=== PATIENT | female | born 1975 | race Caucasian/White ===

== ENCOUNTER 2016-12-02 21:24 | Emergency (ER) | payer OTHER ==
--- NOTE | ~2016-12-02 | CR63 ---
[facility]. [facility] A Service of [facility] & [facility] RADIOLOGY TEXT RESULTS PATIENT: DAVID MADISON LOCATION: SED : 79 UNIT #: [id number] AGE: [address]: Aurelia Good SEX: F ORDER DR: [id number] [address] [id number] MR#: [id number] Acc #: [id number] NAME: DAVID MADISON : 1975 SEX: F STUDY DATE/TIME: 12/02/2016 23:02 UNIT: SED ROOM: STUDY DESCRIPTION: CR Chest 2 View Attending Physician: Aurelia Good Pa-C Ordering Physician: Aurelia Good Pa-C Primary Care Physician: Elias Jean M.D. MEDICAL IMAGING REPORT This report is preliminary unless electronic signature is present. EXAM PA and lateral chest. INDICATIONS Upper back pain for 2 days. FINDINGS PA and lateral examination of the chest upright shows a good expansion of the parenchyma with a normal distribution of the pulmonary vascularity. There is no indication of congestion, effusion, infiltrate, tumor, or nodular density. The pleural reflections and diaphragmatic contours are normal. The cardiac silhouette and mediastinal anatomy is within normal limits. IMPRESSION Normal PA and lateral chest. Dictated by... Larry Poe M.D. THIS IS AN ELECTRONICALLY VERIFIED REPORT Larry Poe M.D. at 12/03/2016 5:54 AM INDERJIT/[email or web address] TD: 12/02/2016 23:56 JOB #: [id number] MEDICAL IMAGING REPORT Page 1 of 1
[~2016-12-02 21:24] MED LIST: AMOXICILLIN PO
[2016-12-02] MEDS ORDERED: LOSARTAN-HCTZ1 EACH PO (22:01)
[2016-12-02] MEDS ORDERED: MOTRIN600 MG PO (22:02)
[2016-12-02] MEDS ORDERED: NEURONTIN800 MG PO (22:02)
[2016-12-03 00:10] LABS: URINE APPEARANCE HAZY; URINE BILIRUBIN NEG (NEG); URINE BLOOD 2+ (NEG); URINE COLOR YELLOW; URINE GLUCOSE NEG (NORM); URINE KETONE TRACE (NEG); URINE LEUKOCYTE ESTERASE TRACE (NEG); URINE NITRATE POS (NEG); URINE PROTEIN NEG (NEG); URINE SOURCE CLEAN CATCH; URINE UROBILINOGEN 0.2 MG/DL (NORM)
[2016-12-03 00:13] LABS: MICRO INDICATED? YES
[2016-12-03 00:15] LABS: CULTURE INDICATED? YES; URINE BACTERIA 2+ (NEG); URINE MUCUS PRESENT; URINE SQUAMOUS EPITHELIAL CELL OCCAS /[HPF]; URINE TRANSITIONAL EPI CELLS FEW /[HPF]
== END 2016-12-03 00:47 | disposition home or self-care (01) ==
LOC: SED 21:24
PROVIDERS: Physician Assistant Medical
DX: N39.0 Urinary tract infection, site not specified (principal); J06.9 Acute upper respiratory infection, unspecified; I10 Essential (primary) hypertension; Z90.49 Acquired absence of other specified parts of digestive tract; Z98.890 Other specified postprocedural states; F17.210 Nicotine dependence, cigarettes, uncomplicated; Z79.899 Other long term (current) drug therapy
CPT/HCPCS: 71020; 81003; 87086; 87088; 87186; 99283